=== PATIENT | female | born 1975 | race Hispanic/Latino ===

== ENCOUNTER 2017-10-28 11:03 | Emergency (ER) | payer BC ==
[~2017-10-28] VITALS: Ht 167.6 cm; Wt 63.5 kg
[2017-10-28] MEDS ORDERED: SODIUM CHLORIDE 0.9% 1000ML 1,000 ML IV STA (11:24)
[2017-10-28] MEDS ORDERED: ONDANSETRON HCL INJ 2 MG/ML VIAL IV STA (11:24)
[2017-10-28] MEDS ORDERED: MORPHINE SULFATE INJ 4 MG/ML INJ IV STA (11:24)
[2017-10-28 11:29] LABS: BILIRUBIN,URINE NEGATIVE (NEGATIVE); CLARITY,URINE CLEAR (CLEAR); COLOR,URINE YELLOW (YELLOW); KETONES,URINE NEGATIVE (NEGATIVE); LEUKOCYTE ESTERASE ,URINE NEGATIVE (NEGATIVE); NITRITE,URINE NEGATIVE (NEGATIVE); PROTEIN,URINE DIPSTICK NEGATIVE (NEGATIVE); URINE UROBILINOGEN 0.2 mg/dL (0.2 - 1)
[2017-10-28 11:32] LABS: BASOPHILS # (AUTO) 0.1 (0.0-0.1); BASOPHILS % 0.5 % (0.0-1.0); EOSINOPHILS # (AUTO) 0.1 (0.0-0.4); EOSINOPHILS % 0.8 % (0.0-6.0); HEMATOCRIT 41.4 % (34.2-44.1); HEMOGLOBIN 14.2 g/dL (12.0-16.0); LYMPHOCYTES # (AUTO) 3.5 (1.0-3.2); LYMPHOCYTES % 32.6 % (18.0-39.1); MEAN CORPUSCULAR HEMOGLOBIN 29.8 pg (28-32); MEAN CORPUSCULAR HGB CONC 34.3 g/dL (31-35); MONOCYTES # (AUTO) 0.6 (0.2-0.8); MONOCYTES % 5.5 % (4.4-11.3); NEUTROPHILS # (AUTO) 6.3 (2.1-6.9); NEUTROPHILS % 59.7 % (38.7-80.0); PLATELET COUNT 212 x10e3/uL (140-360); RED BLOOD COUNT 4.76 x10e6/uL (3.6-5.1); RED CELL DISTRIBUTION WIDTH 12.2 % (11.7-14.4)
[2017-10-28 11:40] LABS: EPITHELIAL CELLS,URINE MODERATE /LPF
[2017-10-28 11:52] LABS: ALANINE AMINOTRANSFERASE 20 IU/L (0-55); ALBUMIN 4.3 g/dL (3.5-5.0); ALBUMIN/GLOBULIN RATIO 1.2 (0.8-2.0); ALKALINE PHOSPHATASE 77 IU/L (40-150); ANION GAP 18.6 mmol/L (8-16); BLOOD UREA NITROGEN 11 mg/dL (7-26); BUN/CREATININE RATIO 17 (6-25); CALCIUM 10.1 mg/dL (8.4-10.2); CARBON DIOXIDE 21 mmol/L (22-29); CHLORIDE 101 mmol/L (98-107); CREATININE, SERUM 0.66 mg/dL (0.57-1.11); EST GLOMERULAR FILTRATION RATE > 60 ML/MIN (60-); GLUCOSE 120 mg/dL (74-118); POTASSIUM 3.6 mmol/L (3.5-5.1); SODIUM 137 mmol/L (136-145)
[2017-10-28 11:53] LABS: AMYLASE 80 U/L (25-125); CREATINE KINASE 73 IU/L (29-168); LIPASE 23 U/L (8-78)
--- NOTE | 2017-10-28 12:30 | Diagnostic Imaging Report ---
PROCEDURE:US GALLBLADDER COMPARISON:None. INDICATIONS:ml abd pain TECHNIQUE: Espino-scale and color doppler transverse and longitudinal images of the right upper quadrant of the abdomen were obtained. FINDINGS: Liver: Measures 17.7 cm in right mid-clavicular line. Normal echogenicity. No masses. Main portal vein: 0.8 cm Gallbladder: No gallbladder wall thickening, distension, stones, or sludge. Common Bile Duct: 5 mm Sonographic Kenyon's sign: Negative Right kidney: Measures up to 10.4 cm. Normal echogenicity. No solid masses or hydronephrosis or stones. Pancreas: The visualized portions are unremarkable. Aorta: Within normal limits Ascites: None in the right upper quadrant of the abdomen. CONCLUSION: No sonographic evidence of cholecystitis. Mild hepatomegaly. Dictated by: CEDRIC DANG M.D. on 10/28/2017 at 12:34 Electronically approved by: CEDRIC DANG M.D. on 10/28/2017 at 12:34
[2017-10-28] MEDS ORDERED: MORPHINE SULFATE 2 MG/ML SYR IV ONE (13:15)
--- NOTE | 2017-10-28 14:00 | Diagnostic Imaging Report ---
PROCEDURE: A single AP view of the chest. COMPARISON: None. INDICATIONS: STOMACH PAIN FINDINGS: Lines/tubes: None. Lungs: The lungs are well inflated and clear. There is no evidence of pneumonia or pulmonary edema. Pleura: There is no pleural effusion or pneumothorax. Heart and mediastinum: The heart and the mediastinum are unremarkable. Bones: No acute bony abnormality. IMPRESSION: 1. No acute cardiopulmonary abnormalities. Adolfo Dominguez M.D. Dictated by: Adolfo Dominguez M.D. on 10/28/2017 at 14:05 Electronically approved by: Adolfo Dominguez M.D. on 10/28/2017 at 14:05
[2017-10-28] MEDS ORDERED: SODIUM CHLORIDE 0.9% 50ML 50 ML ONE (15:02)
[2017-10-28] MEDS ORDERED: IOPAMIDOL 370 MG/ML 200 ML INFUS..BTL INJ ONE (15:02)
--- NOTE | 2017-10-28 15:10 | Diagnostic Imaging Report ---
PROCEDURE: CT ABDOMEN AND PELVIS WITH CONTRAST TECHNIQUE: The abdomen and pelvis were scanned utilizing a multidetector helical scanner from the diaphragm to the lesser trochanter after the IV administration of 100 cc of Isovue 370 and the oral administration of water. Coronal and sagittal multiplanar reformations were obtained. COMPARISON: Patients [facility], US, US GALLBLADDER, 10/28/2017, 11:38. INDICATIONS: EPIGASTRIC PAIN FINDINGS: LOWER THORAX: Normal. HEPATOBILIARY: Mildly enlarged liver with normal contour. Diffuse hepatic steatosis. No focal lesions. No biliary ductal dilation. No gallstones or sludge. Small amount of pericholecystic fluid. SPLEEN: No splenomegaly. PANCREAS: No focal masses or ductal dilatation. ADRENALS: No adrenal nodules. KIDNEYS/URETERS: No hydronephrosis, stones, or solid mass lesions. PELVIC ORGANS/BLADDER: The bladder and uterus are unremarkable. No adnexal masses. 1.6 cm fluid density lesion in the right ovary likely represents a dominant follicle. PERITONEUM / RETROPERITONEUM: No free air or fluid. LYMPH NODES: No lymphadenopathy. VESSELS: Unremarkable. GI TRACT: No bowel dilation or evidence of obstruction. No pericolonic inflammatory changes. Appendix is well identified and normal in caliber. BONES AND SOFT TISSUES: No aggressive lytic lesions. Soft tissues are unremarkable IMPRESSION: 1. No acute abdominopelvic abnormalities. 2. Small amount of pericholecystic fluid, which is nonspecific. No CT or ultrasound (performed earlier today) evidence of cholelithiasis or cholecystitis. 3. Mild hepatomegaly with diffuse fatty infiltration. Adolfo Dominguez M.D. Dictated by: Adolfo Dominguez M.D. on 10/28/2017 at 15:15 Electronically approved by: Adolfo Dominguez M.D. on 10/28/2017 at 15:15
== END 2017-10-28 16:31 | disposition home or self-care (01) ==
LOC: ER 11:03
DX: R10.11 Right upper quadrant pain (principal); R10.13 Epigastric pain; R11.2 Nausea with vomiting, unspecified; K29.00 Acute gastritis without bleeding
CPT/HCPCS: 36415; 71045; 74177; 76705; 80053; 81001; 81025; 82150; 82550; 82553; 83690; 84484; 85025; 93005; 99284; J2270 ×2; J2405; J7030; Q9967